=== PATIENT | male | born 2000 | race African-American/Black ===

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

== ENCOUNTER 2019-01-16 05:55 | Emergency (ER) | payer SELFPAY ==
[~2019-01-16] VITALS: Ht 185.4 cm; Wt 90.0 kg
[2019-01-16 05:58] VITALS: TEMP 97
[2019-01-16] MEDS ORDERED: PREDNISONE20 MG PO (07:41)
[2019-01-16] MEDS ORDERED: PROAIR HFA0.09 MG/AC IH (07:41)
[2019-01-16 08:07] VITALS: BP 122/67; PULSE 88
== END 2019-01-16 08:08 | disposition home or self-care (01) ==
LOC: COL.ER 05:55
DX: J45.901 Unspecified asthma with (acute) exacerbation (principal); Z79.51 Long term (current) use of inhaled steroids
CPT/HCPCS: J7512

== ENCOUNTER 2019-03-05 18:42 | Emergency (ER) | payer SELFPAY ==
[~2019-03-05] VITALS: Ht 185.4 cm; Wt 90.0 kg
[2019-03-05 18:57] VITALS: BP 107/70
[2019-03-05 20:09] VITALS: PULSE 79; TEMP 98.2
== END 2019-03-05 20:09 | disposition home or self-care (01) ==
LOC: COL.ER 18:42
DX: S62.616A Displaced fracture of proximal phalanx of right little finger, initial encounter for closed fracture (principal); J45.909 Unspecified asthma, uncomplicated; Z79.51 Long term (current) use of inhaled steroids; W19.XXXA Unspecified fall, initial encounter; Y92.009 Unspecified place in unspecified non-institutional (private) residence as the place of occurrence of the external cause; Y93.61 Activity, american tackle football